=== PATIENT | female | born 1990 | race Caucasian/White ===

== ENCOUNTER 2018-04-13 09:30 | Emergency (ER) | payer OTHER ==
[2018-04-13 09:40] VITALS: BP 118/71; PULSE 90; TEMP 98; BMI 31.3
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
[2018-04-13] MEDS ORDERED: IBUPROFEN 600 MG TABLET (FP) PO ONE (10:12)
== END 2018-04-13 11:20 | disposition home or self-care (01) ==
LOC: FER 09:30
CPT/HCPCS: 72100-TC-FY; 84703; 99283-25